=== PATIENT | male | born 1950 | race Caucasian/White ===

== ENCOUNTER 2022-01-19 07:18 | Observation (INO) | payer MEDICARE ==
[~2022-01-19] VITALS: Ht 185.4 cm; Wt 100.7 kg
[~2022-01-19 07:18] MED LIST: ATORVASTATIN CA10 MG PO; CELECOXIB 200 MG CAP ONE; DEXAMETHASONE SOD PHOS 10 MG/1 ML VIAL ONE; GABAPENTIN 300 MG CAP ONE; LISINOPRIL40 MG PO; SERTRALINE HCL50 MG PO; SODIUM CHLORIDE 0.9% 500ML 500 ML ONE; TRANEXAMIC ACID 20 ML ONE; Vancomycin IV 1,000 MG ONE; ZOLPIDEM TARTRAT5 MG PO
[2022-01-19] MEDS ORDERED: ROPIVACAINE 246.25 MG, EPINEPHRINE HCL 1:1000 1ML 0.5 MG, CLONIDINE HCL 0.08 MG, KETORO... INJ ONE ×5 (08:00)
[2022-01-19] MEDS ORDERED: HYDROCODONE/APAP 7.5MG-325MG 1 EA TAB PO PRN (10:15)
[2022-01-19] MEDS ORDERED: ONDANSETRON HCL INJ 2MG/ML 2ML 2 MG/ML VIAL IV PRN (10:15)
[2022-01-19] MEDS ORDERED: DIPHENHYDRAMINE HCL INJ 50 MG/ML VIAL IV PRN (10:15)
[2022-01-19] MEDS ORDERED: DOCUSATE SODIUM 100 MG CAP PO PRN (10:15)
[2022-01-19] MEDS ORDERED: SODIUM CHLORIDE 0.9% 1000ML 1,000 ML IV SCH (10:15)
[2022-01-19] MEDS ORDERED: HYDROCODONE/APAP 5MG-325MG TAB PO PRN (10:15)
[2022-01-19] MEDS ORDERED: FENTANYL CITRATE/PF 100MCG/2 ML INJ ONE ×2 (12:16→12:27)
[2022-01-19] MEDS ORDERED: ONDANSETRON HCL INJ 2MG/ML 2ML 2 MG/ML VIAL ONE (12:54)
[2022-01-19] MEDS ORDERED: PROPOFOL IV EMULSION 10 MG/ML 20 ML VIAL ONE (12:54)
[2022-01-19] MEDS ORDERED: LIDOCAINE HCL 2% LOCAL INJ 5 ML SDV VIAL INJ ONE (12:54)
[2022-01-19] MEDS ORDERED: POVIDONE IODINE 0.05% 0.05 % ML PO ONE (12:54)
[2022-01-19] MEDS ORDERED: LIDOCAINE HCL 2% LOCAL 20 ML VIAL ONE (12:56)
[2022-01-19] MEDS ORDERED: BUPIVACAINE 0.25% 30ML SDV ONE (12:56)
[2022-01-19 13:30] VITALS: BP 121/53
[2022-01-19] MEDS ORDERED: ACETAMINOPHEN 1000 MG/100 ML IV PRN (14:00)
[2022-01-19] MEDS ORDERED: ASPIRIN81 MG PO (16:06)
[2022-01-19 16:16] VITALS: BP 99/71
[2022-01-19] MEDS ORDERED: CELECOXIB 100 MG CAP PO SCH (17:00)
[2022-01-19] MEDS ORDERED: ASPIRIN 325 MG TAB PO SCH (17:00)
== END 2022-01-19 17:15 | disposition home or self-care (01) ==
LOC: OR 07:18 → PACU V 10:06 → MED/SURG 13:03
PROVIDERS: ADMIT Specialist; ATTEND Specialist
DX: M17.11 Unilateral primary osteoarthritis, right knee (principal); I10 Essential (primary) hypertension; Z20.822 Contact with and (suspected) exposure to COVID-19; Z01.818 Encounter for other preprocedural examination
CPT/HCPCS: 0223U; 27447; 36415; 71046; 73560; 86850; 86900; 86920; 94799; 97110; 97116; 97161; C1713 ×2; C1776 ×4; G0378; J0171; J0690; J1100; J1885; J2001 ×2; J2405; J2704; J2795; J3010; J3370; J7040

== ENCOUNTER 2022-03-22 08:59 | Outpatient (RCR) | payer MEDICARE ==
[~2022-03-22 08:59] MED LIST changes: +ASPIRIN81 MG PO; -CELECOXIB 200 MG CAP ONE; -DEXAMETHASONE SOD PHOS 10 MG/1 ML VIAL ONE; -GABAPENTIN 300 MG CAP ONE; -SODIUM CHLORIDE 0.9% 500ML 500 ML ONE; -TRANEXAMIC ACID 20 ML ONE; -Vancomycin IV 1,000 MG ONE
== END 2022-03-23 ==
LOC: PT 08:59
PROVIDERS: ATTEND Physician Assistant
DX: Z47.1 Aftercare following joint replacement surgery (principal); Z96.651 Presence of right artificial knee joint

== ENCOUNTER 2022-04-05 09:00 | Outpatient (RCR) | payer MEDICARE | END 2022-04-20 | LOC: PT 09:00 | PROVIDERS: ATTEND Physician Assistant | DX: Z47.1 Aftercare following joint replacement surgery (principal); Z96.651 Presence of right artificial knee joint ==